=== PATIENT | female | born 1995 | race Caucasian/White ===

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

== ENCOUNTER 2017-05-22 02:18 | Inpatient (IN) | payer MEDICAID, OTHER ==
[2017-05-22] VITALS (51 sets, daily range): BP systolic 93–139; BP diastolic 49–91; PULSE 73–116; RESP 16–18; TEMP 97.9–98.8
[~2017-05-22] VITALS: Ht 160 cm; Wt 94.0 kg
[~2017-05-22 02:18] MED LIST changes: -BACT800T5 PO; +PREN1CHW7 PO; -PYRI200T4 PO
[2017-05-22] MEDS ORDERED: LACTATED RINGER'S 1000 ML INJ 1,000 ML IV PRN (03:03)
--- NOTE | 2017-05-22 03:03 | PD ---
HPI Chief Complaint fluid per vagina Date Seen: May 22, 2017 Time Seen: 03:00 Travel History International Travel<30 Days: No Contact w/Intl Traveler<30Days: No Known Affected Area: No History of Present Illness HPI 22-year-old who is at 36 weeks 6 days comes in complaining of fluid per vagina that began about 01 100 today. Patient denies painful contractions but notices a little bit of cramping. No antepartum complications at this time but has not gotten the results of her group B strep. Weeks Gestation: 36 Para: 0 : 1 History Past Medical History Medical History: Denies Significant Hx Past Surgical History Narrative Surgical Tonsillectomy Family History Family History: Negative Social History Alcohol Use: No Tobacco Use: No Substance Abuse: No Allergies-Medications (Allergen,Severity, Reaction): Coded Allergies: No Known Allergies (Verified Adverse Reaction, Unknown, 05/02/17) Home Meds Active Scripts Vit W/ Ferric Phospha (Vitafol Gummies 3.33-0.333-34.8 mg) 1 Chw Chw, 3 TAB PO DAILY, #90 BOTTLE 10 Refills Prov:Karishma Looney 03/26/17 Review of Systems Except as stated in HPI: all other systems reviewed are Neg Physical Exam Narrative GENERAL: Well-nourished, well-developed patient. SKIN: Warm and dry. HEAD: Normocephalic and atraumatic. EYES: No scleral icterus. No injection or drainage. ENT: No nasal drainage noted. Mucous membranes pink. Airway patent. NECK: Supple, trachea midline. No JVD. CARDIOVASCULAR: Regular rate and rhythm without murmurs, gallops, or rubs. RESPIRATORY: Breath sounds equal bilaterally. No accessory muscle use. ABDOMEN/GI: Abdomen soft, non-tender, bowel sounds present, no rebound, no guarding Gravid to [37-] weeks size Fundal Height: [-] GENITOURINARY: External Genitalia: intact and normal in appearance BUS glands: [-] Normal Cervix: [-] Posterior Dilatation: [-] Closed Effacement: [-] 50 Station: [-] -3 Presentation: [-] Vertex Membranes: [intact or ruptured] ruptured with a positive amnisure Uterine Contractions: [-] Occasional contractions, mild FHT's: Category: [-] 1 Baseline: [-] 140 Reactive: [-] Moderate Variability: [-] Moderate Decels: [-] Absent EXTREMITIES: No cyanosis or edema. BACK: Nontender without obvious deformity. No CVA tenderness. NEUROLOGICAL: Awake and alert. Motor and sensory grossly within normal limits. Five out of 5 muscle strength in all muscle groups. Normal speech. Data Data Vital Signs Reviewed: Yes [facility] Medical Record Reviewed: Yes Plan 22-year-old at 36 weeks 6 days with premature rupture membranes. Antibiotic prophylaxis she has not completed her 36 week we do not have a group B strep result Cervical ripening with Cytotec followed by Pitocin augmentation Diagnosis Diagnosis: Primary Impression: 36 weeks gestation of Additional Impressions: Rupture of membranes with clear amniotic fluid Premature rupture of membranes Medina Sutton MD May 22, 2017 03:03
[2017-05-22] MEDS ORDERED: PENICILLIN G POTASSIUM INJ 5,000,000 UNITS in SODIUM CHLORIDE 0.9% INJ 100 ML IV ONE (03:15)
[2017-05-22] MEDS ORDERED: OXYTOCIN 30 UNITS-500ML PREMIX 500 ML IV ONE (03:15)
[2017-05-22] MEDS ORDERED: ONDANSETRON HCL 4 MG/2 ML VIAL IV PUSH PRN (03:15)
[2017-05-22] MEDS ORDERED: SODIUM CHLORIDE 0.9% FLUSH 10 ML FLUSH IV FLUSH PRN (03:15)
[2017-05-22] MEDS ORDERED: MINERAL OIL 10 ML VIAL TOPICAL PRN (03:15)
[2017-05-22] MEDS ORDERED: LIDOCAINE HCL 1% 50 ML VIAL I-DERMAL PRN (03:15)
[2017-05-22] MEDS ORDERED: LIDOCAINE HCL 1% 50 ML VIAL INFIL PRN (03:15)
[2017-05-22] MEDS ORDERED: SODIUM CHLORID 0.9% 500 ML INJ 500 ML IV PRN (03:15)
[2017-05-22] MEDS ORDERED: CITRIC ACID-SODIUM CITRATE LIQ 30 ML UDC PO SCH (03:15)
[2017-05-22] MEDS ORDERED: SODIUM CHLOR 0.9% 1000 ML INJ 1,000 ML IV PRN (03:23)
[2017-05-22 03:58] LABS: BASOPHIL % 0.4 % (0.0-2.0); EOSINOPHIL # 0.1 TH/MM3 (0-0.4); EOSINOPHIL % 0.9 % (0.0-4.0); HEMATOCRIT 30.2 % (35.0-46.0); HEMOGLOBIN 10.6 GM/DL (11.6-15.3); LYMPH % 26.2 % (9.0-44.0); LYMPHOCYTE # 2.8 TH/MM3 (1.0-4.8); MEAN CELL VOLUME 83.2 FL (80.0-100.0); MEAN CORPUSCULAR HEMOGLOBIN 29.1 PG (27.0-34.0); MEAN CORPUSCULAR HGB CONC 34.9 % (32.0-36.0); MEAN PLATELET VOLUME 6.9 FL (7.0-11.0); MONO % 8.6 % (0.0-8.0); MONOCYTE # 0.9 TH/MM3 (0-0.9); NEUT % 63.9 % (16.0-70.0); PLATELET COUNT 340 TH/MM3 (150-450); RED BLOOD COUNT 3.63 MIL/MM3 (4.00-5.30); RED CELL DISTRIBUTION WIDTH 13.4 % (11.6-17.2); WHITE BLOOD COUNT 10.9 TH/MM3 (4.0-11.0)
[2017-05-22] MEDS: MISOPROSTOL 100 MCG TAB PO SCH ×2 (04:00→08:39)
[2017-05-22] MEDS: LACTATED RINGER'S 1000 ML INJ 1,000 ML IV SCH ×2 (04:27→11:03)
[2017-05-22] MEDS ORDERED: PENICILLIN G POTASSIUM INJ 2,500,000 UNITS in SODIUM CHLORIDE 0.9% INJ 100 ML IV SCH (07:15)
[2017-05-22] MEDS: SODIUM CHLORIDE 0.9% FLUSH 10 ML FLUSH IV FLUSH SCH ×2 (09:00→21:00)
[2017-05-22] MEDS: MISOPROSTOL 25 MCG TAB VAGINAL SCH ×2 (12:22→16:00)
[2017-05-22] MEDS: PENICILLIN G POTASSIUM INJ 2,500,000 UNITS in SODIUM CHLORIDE 0.9% INJ 100 ML IV SCH ×3 (12:38→20:00)
[2017-05-22] MEDS ORDERED: OXYTOCIN 30 UNITS-500ML PREMIX 500 ML IV PRN (16:45)
[2017-05-22] MEDS ORDERED: ePHEDrine/NS 25 MG/5 ML SYRINGE ONE (18:45)
[2017-05-22] MEDS ORDERED: ePHEDrine/NS 25 MG/5 ML SYRINGE IV PUSH PRN (20:30)
[2017-05-22] MEDS ORDERED: fentaNYL 2MCG-BUPIV 0.125% 100 ML EPIDURAL SCH (21:00)
[2017-05-22] MEDS ORDERED: DO NOT ADMINISTER ANTICOAGULANTS PRN (21:00)
[2017-05-22] MEDS ORDERED: NO SYSTEM NARCOTICS PRN (21:00)
[2017-05-23] VITALS (25 sets, daily range): BP systolic 99–146; BP diastolic 41–83; PULSE 75–109; RESP 14–25; TEMP 97.8–99.5; O2SAT 97–100
[2017-05-23] MEDS ORDERED: MORPHINE SULFATE PF 5 MG/10 ML VIAL ONE (04:03)
[2017-05-23] MEDS ORDERED: OXYTOCIN 30 UNITS-500ML PREMIX 500 ML IV ONE (05:15)
[2017-05-23] MEDS ORDERED: ZOLPIDEM TARTRATE 5 MG TAB PO PRN (05:15)
[2017-05-23] MEDS ORDERED: CEFAZOLIN INJ 2,000 MG in SODIUM CHLORIDE 0.9% INJ 100 ML IV SCH (05:15)
[2017-05-23] MEDS ORDERED: ACETAMINOPHEN 325 MG TAB PO PRN (05:15)
[2017-05-23] MEDS ORDERED: DOCUSATE SODIUM 50 MG/SENNA 8.6 MG TAB PO PRN (05:15)
[2017-05-23] MEDS ORDERED: SIMETHICONE 80 MG CHEWABLE TAB PO PRN (05:15)
[2017-05-23] MEDS ORDERED: SODIUM CHLORIDE 0.9% FLUSH 10 ML FLUSH IV FLUSH PRN (05:15)
[2017-05-23] MEDS ORDERED: oxyCODONE/ACETAMINOPHEN 5 MG/325 MG TAB PO PRN (05:15)
[2017-05-23] MEDS ORDERED: KETOROLAC TROMETHAMINE 60 MG/2 ML (IM) VIAL IM PRN (05:15)
[2017-05-23] MEDS ORDERED: ONDANSETRON HCL 4 MG/2 ML VIAL IV PUSH PRN (05:15)
[2017-05-23] MEDS ORDERED: ceFAZolin 2 GM PREMIX 50 ML IV SCH (06:00)
[2017-05-23] MEDS ORDERED: KETOROLAC TROMETHAMINE 60 MG/2 ML (IM) VIAL IM ONE (07:58)
[2017-05-23] MEDS ORDERED: ACETAMINOPHEN 1000 MG/100 ML 100 ML IV ONE ×3 (07:58→13:00)
[2017-05-23] MEDS ORDERED: EPIDURAL-NO SYSTEMIC NARCOTICS PRN (08:30)
[2017-05-23] MEDS ORDERED: EPIDURAL-NALOXONE HCL 0.4 MG/ML AMP IV PUSH PRN (08:30)
[2017-05-23] MEDS ORDERED: EPIDURAL-DIPHENHYDRAMINE HCL 50 MG/ML VIAL IV PUSH PRN (08:30)
[2017-05-23] MEDS ORDERED: EPIDURAL-DIPHENHYDRAMINE HCL 50 MG CAP PO PRN (08:30)
[2017-05-23] MEDS ORDERED: EPIDURAL-DO NOT ADMINISTER ANTICOAGULANTS PRN (08:30)
[2017-05-23] MEDS ORDERED: SODIUM CHLORIDE 0.9% FLUSH 10 ML FLUSH IV FLUSH SCH (09:00)
[2017-05-23] MEDS ORDERED: INFLUENZA VIRUS VACCINE (QUADRIVALENT) 0.5 ML SYR IM ONE (10:00)
[2017-05-23] MEDS ORDERED: LACTATED RINGER'S 1000 ML INJ 1,000 ML IV SCH (10:15)
--- NOTE | 2017-05-23 11:18 | MP ---
cc: VERN CENTENO MD DATE OF SURGERY 05/23/2017 PREOPERATIVE DIAGNOSIS 37-week intrauterine with premature rupture of membranes, failure to progress, failed labor induction. POSTOPERATIVE DIAGNOSIS 37-week intrauterine with premature rupture of membranes, failure to progress, failed labor induction. PROCEDURE PERFORMED Primary low transverse section. SURGEON MD Bin ANESTHESIA Epidural PREOPERATIVE NOTE The patient is a 22-year-old white female, , at 37 weeks presented with premature rupture of the membranes but was not in labor. She was admitted, given cervical ripening and labor induction. She achieved cervical dilation to 5 cm and stayed at that dilation for 5 hours with no further progress in spite of augmentation and adequate contractions. It was felt that she had labor dystocia and would need section. PROCEDURE The patient was taken to the operating room and placed in supine position on the operating room table. After adequate epidural anesthesia was administered, she was prepped and draped for abdominal surgery and a Pfannenstiel incision was made in the lower abdomen, carried through the fascia sharply. The Fascia was dissected laterally and then off the rectus muscle. The peritoneal cavity was entered sharply in the midline. Incision was extended superiorly and inferiorly and the bladder placed under the bladder blade. The visceral peritoneum was reflected off the lower uterine segment and placed on the bladder blade. A female infant was then delivered through a transverse hysterotomy, delivery time 04:37 a.m., Apgars 9 and 9, baby's weight 3010 grams. Delayed cord clamping done, cord blood obtained. Placenta manually extracted without difficulty. The uterus was exteriorized and then hysterotomy closed in running layer of 0 chromic followed by imbricating suture of same. Hemostasis was achieved. The bladder was reapproximated with a running stitch of 2-0 Vicryl. The uterus was elevated and blood suctioned from the cul-de-sac and gutters and the uterus replaced in the peritoneal cavity. The parietal peritoneum was closed with a running layer of 2-0 Vicryl. The rectus muscle was reapproximated together with stick ties of chromic and Vicryl. The fascia was closed in a running layer of 0 Vicryl and the skin closed with 3-0 Monocryl subcuticular stitch. Steri-Strips and pressure dressing applied. Estimated blood loss was 500 cc. There were no complications. Sponge and needle count correct x 2. The patient went to Recovery. Baby and mother are doing well. MD ELBERT Rivero/VIKA /5:19 AM /10:53 AM
[2017-05-23] MEDS ORDERED: ONDANSETRON HCL 4 MG/2 ML VIAL IV ONE (12:00)
[2017-05-23] MEDS ORDERED: LIDOCAINE 2%/EPINEPHrine PF 1:200,000 20ML SDV OTHER ONE (12:00)
[2017-05-23] MEDS ORDERED: OXYTOCIN 10 UNIT/ML AMP IV ONE (12:00)
[2017-05-23] MEDS ORDERED: LACTATED RINGER'S 1000 ML INJ 1,000 ML IV ONE (12:00)
[2017-05-23] MEDS ORDERED: ceFAZolin INJ 1,000 MG VIAL IV ONE (12:00)
[2017-05-23] MEDS ORDERED: SODIUM CHLORIDE 0.9% 20 ML VIAL IV ONE (12:00)
[2017-05-23] MEDS ORDERED: DEXAMETHASONE SOD PHOS 4 MG/ML VIAL IV ONE (12:00)
[2017-05-23] MEDS: ceFAZolin 2 GM PREMIX 50 ML IV SCH ×2 (12:55→20:45)
[2017-05-23] MEDS ORDERED: OXYTOCIN 30 UNITS-500ML PREMIX 500 ML IV PRN (15:15)
[2017-05-23] MEDS: IBUPROFEN 600 MG TAB PO PRN (18:53)
[2017-05-23] MEDS: oxyCODONE/ACETAMINOPHEN 5 MG/325 MG TAB PO PRN (18:54)
[2017-05-24 01:00] VITALS: BP 116/74; PULSE 87; RESP 16; TEMP 97.6
[2017-05-24] MEDS: IBUPROFEN 600 MG TAB PO PRN ×3 (05:34→20:28)
[2017-05-24] MEDS: oxyCODONE/ACETAMINOPHEN 5 MG/325 MG TAB PO PRN ×4 (05:34→20:28)
[2017-05-24 06:10] LABS: AUTOMATED NEUTROPHIL # 7.4 TH/MM3 (1.8-7.7); BASOPHIL % 0.3 % (0.0-2.0); EOSINOPHIL # 0.1 TH/MM3 (0-0.4); EOSINOPHIL % 0.8 % (0.0-4.0); HEMATOCRIT 24.4 % (35.0-46.0); HEMOGLOBIN 8.7 GM/DL (11.6-15.3); LYMPH % 23.2 % (9.0-44.0); LYMPHOCYTE # 2.6 TH/MM3 (1.0-4.8); MEAN CELL VOLUME 84.3 FL (80.0-100.0); MEAN CORPUSCULAR HGB CONC 35.6 % (32.0-36.0); MEAN PLATELET VOLUME 6.9 FL (7.0-11.0); MONO % 9.8 % (0.0-8.0); MONOCYTE # 1.1 TH/MM3 (0-0.9); NEUT % 65.9 % (16.0-70.0); PLATELET COUNT 236 TH/MM3 (150-450); RED CELL DISTRIBUTION WIDTH 13.5 % (11.6-17.2); WHITE BLOOD COUNT 11.2 TH/MM3 (4.0-11.0)
[2017-05-24 08:10] VITALS: BP 116/64; PULSE 88; RESP 18; TEMP 98; O2SAT 98
[2017-05-24 08:15] VITALS: BP 116/64; PULSE 18; PULSE 88; RESP 18; TEMP 98
--- NOTE | 2017-05-24 08:59 | HHI.OB ---
Subjective Post Operative Day: 1 Remarks Postoperative day number 1. AFVSS overnight. Pain not well-controlled. Incision not draining. Decreased lochia. Denies dysuria. No breast tenderness. She is feeding the baby via breast. Appetite good. No nausea or vomiting. + flatus. no bowel movement. Ambulating well. Denies calf pain, shortness of breath, or cough. Otherwise, she is doing well this morning and has no other complaints. Objective Vitals/I&O Vital Signs Date Time Temp Pulse Resp B/P (MAP) Pulse Ox O2 Delivery O2 Flow Rate FiO2 05/24/17 08:10 98.0 88 18 116/64 (81) 98 05/24/17 01:00 97.6 05/24/17 01:00 87 16 116/74 (88) 05/23/17 20:16 108/64 (79) 05/23/17 20:16 97.8 90 18 05/23/17 13:00 98.2 16 05/23/17 13:00 75 108/60 (76) 05/23/17 10:00 98.5 80 16 115/68 (84) Result Diagram: 05/24/17 0529 Objective Remarks GENERAL: Well-nourished, well-developed patient. CARDIOVASCULAR: Regular rate and rhythm without murmurs, gallops, or rubs. RESPIRATORY: Breath sounds equal bilaterally. No accessory muscle use. ABDOMEN/GI: Abdomen soft, non-tender, bowel sounds present. Incision: Clean, dry and intact. Fundus: Firm, non-tender at umbilicus. GENITOURINARY: Light to moderate bleeding. EXTREMITIES: No cyanosis or edema, non-tender, without signs of DVT. Medications and IVs Current Medications Medications (Trade) Dose Ordered Sig/Maki Route Start Time Stop Time Status Last Admin Lactated Ringer's 1,000 ml @ 125 mls/hr Q8H IV 05/22/17 03:03 05/22/17 11:03 Lactated Ringer's 1,000 ml @ 3,000 mls/hr Q20M PRN IV 05/22/17 03:03 Sodium Chloride 500 ml @ 1,000 mls/hr ONCE PRN IV 05/22/17 03:15 Sodium Chloride 1,000 ml @ 100 mls/hr Q10H PRN IV 05/22/17 03:23 (Xylocaine 1% Inj (50 ml)) 0.1 ml UNSCH X1 PRN I-DERMAL 05/22/17 03:15 05/25/17 03:14 (Bicitra Liq) 30 ml GYM TEACHER PO 05/22/17 03:15 05/26/17 03:14 (fentaNYL INJ) 50 mcg Q1H PRN IV PUSH 05/22/17 03:15 (fentaNYL INJ) 100 mcg Q1H PRN IV PUSH 05/22/17 03:15 05/22/17 17:32 (Muri-Lube Oil) 10 ml UNSCH PRN TOPICAL 05/22/17 03:15 (Cytotec) 25 mcg Q4HR VAGINAL 05/22/17 12:00 05/22/17 12:22 Penicillin G Potassium [id number] units/Sodium Chloride 100 ml @ 200 mls/hr Q4H IV 05/22/17 12:00 05/22/17 20:00 Oxytocin 500 ml @ 2 mls/hr TITRATE PRN IV 05/22/17 16:45 05/22/17 17:08 Fentanyl/ Bupivacaine HCl 100 ml @ 0 mls/hr TITRATE EPIDURAL 05/22/17 21:00 Oxytocin 500 ml @ 100 mls/hr UNSCH X1 PRN IV 05/23/17 15:15 05/24/17 15:14 (NS Flush) 2 ml BID IV FLUSH 05/23/17 09:00 (NS Flush) 2 ml UNSCH PRN IV FLUSH 05/23/17 05:15 (Mylicon Chew) 80 mg QID PRN PO 05/23/17 05:15 (Tylenol) 650 mg Q6H PRN PO 05/23/17 05:15 (Motrin) 600 mg Q6H PRN PO 05/23/17 05:15 05/24/17 05:34 (Percocet 5-325 Mg) 1 tab Q4H PRN PO 05/23/17 05:15 05/24/17 05:34 (Percocet 5-325 Mg) 2 tab Q4H PRN PO 05/23/17 05:15 05/24/17 00:03 (Vannessa-Colace) 2 tab Q12H PRN PO 05/23/17 05:15 05/24/17 05:34 (Ambien) 5 mg HS PRN PO 05/23/17 05:15 (M-M-R Ii Inj) 0.5 ml ONCE ONCE SQ 05/24/17 16:00 05/24/17 16:01 (Boostrix Inj) 0.5 ml ONCE ONCE IM 05/24/17 16:00 05/24/17 16:01 05/23/17 18:53 (Zofran Inj) 4 mg Q6H PRN IV PUSH 05/23/17 05:15 Assessment/Plan Problem List: (1) delivery, delivered, current hospitalization ICD Codes: O82 - Encounter for delivery without indication Status: Acute Plan: 22 y/o female who is POD# 1 s/p CXN. -Continue routine care. -Percocet and Motrin PRN pain. -Encouraged OOB. Advised pelvic rest for 6 wks. Will need a f/u appt. in 1 wk for incision check. -Re: ctrl, she would like an IUD, but would like a DepoProvera shot before discharge. -D/c in 1-2 more days. [facility] OB attending Mae Gupta MD R1 May 24, 2017 08:59
[2017-05-24] MEDS ORDERED: MEASLES, MUMPS, RUBELLA VACCINE 0.5 ML VIAL SQ ONE (16:00)
[2017-05-24] MEDS ORDERED: DIPHTH/TETANUS/ACEL PERTUSSIS (BOOSTER) 0.5 ML VIAL/PFS IM ONE (16:00)
[2017-05-24 20:00] VITALS: BP 135/80; PULSE 87; RESP 20; TEMP 99.9
[2017-05-25 08:00] VITALS: BP 127/80; PULSE 87; RESP 18; TEMP 98.1; O2SAT 98
[2017-05-25] MEDS ORDERED: medroxyPROGESTERone ACETATE SUSP 150 MG/ML SYRINGE IM ONE (08:30)
[2017-05-25] MEDS ORDERED: OXYC1TAB63 PO (08:32)
[2017-05-25] MEDS ORDERED: IBUP-232 PO (08:32)
--- NOTE | 2017-05-25 08:33 | HHI.DCPOC ---
Discharge Care Plan Diagnosis: (1) delivery, delivered, current hospitalization Report Symptoms to Your Doctor -Temperature above 100.5 degrees -Redness, of incision or excessive or foul smelling drainage -Unusual pain or calf pain -Increased vaginal bleeding -Painful or difficulty urinating -Feelings of extreme sadness or anxiety after 2 weeks Goals to Promote Your Health * To prevent worsening of your condition and complications * To maintain your health at the optimal level Directions to Meet Your Goals Take your medications as prescribed Follow your dietary instruction Follow activity as directed Ensure plenty of rest for recovery Drink fluids for hydration Keep your appointments as scheduled Take your immunizations and boosters as scheduled If your symptoms worsen call your PCP, if no PCP go to Urgent Care Center or Emergency Room Smoking is Dangerous to Your Health. Avoid second hand smoke Call the 24-hour crisis hotline for domestic abuse at Lani Sanchez MD May 25, 2017 08:33
--- NOTE | 2017-05-25 08:39 | HHI.OB ---
Subjective Post Operative Day: 2 Remarks Postoperative day number 2. AFVSS overnight. Pain not well-controlled. Incision not draining. Decreased lochia. Denies dysuria. No breast tenderness. She is feeding the baby via breast. Appetite good. No nausea or vomiting. + flatus. no bowel movement. Ambulating well. Denies calf pain, shortness of breath, or cough. Otherwise, she is doing well this morning and has no other complaints. Objective Vitals/I&O Vital Signs Date Time Temp Pulse Resp B/P (MAP) Pulse Ox O2 Delivery O2 Flow Rate FiO2 05/24/17 20:00 99.9 87 20 05/24/17 20:00 135/80 (98) Result Diagram: 05/24/17 0529 Objective Remarks GENERAL: Well-nourished, well-developed patient. CARDIOVASCULAR: Regular rate and rhythm without murmurs, gallops, or rubs. RESPIRATORY: Breath sounds equal bilaterally. No accessory muscle use. ABDOMEN/GI: Abdomen soft, non-tender, bowel sounds present. Incision: Clean, dry and intact. Steristrips in place Fundus: Firm, non-tender at umbilicus. GENITOURINARY: Light to moderate bleeding. EXTREMITIES: No cyanosis or edema, non-tender, without signs of DVT. Medications and IVs Current Medications Medications (Trade) Dose Ordered Sig/Maki Route Start Time Stop Time Status Last Admin Lactated Ringer's 1,000 ml @ 125 mls/hr Q8H IV 05/22/17 03:03 05/22/17 11:03 Lactated Ringer's 1,000 ml @ 3,000 mls/hr Q20M PRN IV 05/22/17 03:03 Sodium Chloride 500 ml @ 1,000 mls/hr ONCE PRN IV 05/22/17 03:15 Sodium Chloride 1,000 ml @ 100 mls/hr Q10H PRN IV 05/22/17 03:23 (Bicitra Liq) 30 ml WALL STEAMER PO 05/22/17 03:15 05/26/17 03:14 (fentaNYL INJ) 50 mcg Q1H PRN IV PUSH 05/22/17 03:15 (fentaNYL INJ) 100 mcg Q1H PRN IV PUSH 05/22/17 03:15 05/22/17 17:32 (Muri-Lube Oil) 10 ml UNSCH PRN TOPICAL 05/22/17 03:15 (Cytotec) 25 mcg Q4HR VAGINAL 05/22/17 12:00 05/22/17 12:22 Penicillin G Potassium [id number] units/Sodium Chloride 100 ml @ 200 mls/hr Q4H IV 05/22/17 12:00 05/22/17 20:00 Oxytocin 500 ml @ 2 mls/hr TITRATE PRN IV 05/22/17 16:45 05/22/17 17:08 Fentanyl/ Bupivacaine HCl 100 ml @ 0 mls/hr TITRATE EPIDURAL 05/22/17 21:00 (NS Flush) 2 ml BID IV FLUSH 05/23/17 09:00 (NS Flush) 2 ml UNSCH PRN IV FLUSH 05/23/17 05:15 (Mylicon Chew) 80 mg QID PRN PO 05/23/17 05:15 05/24/17 14:21 (Tylenol) 650 mg Q6H PRN PO 05/23/17 05:15 (Motrin) 600 mg Q6H PRN PO 05/23/17 05:15 05/24/17 20:28 (Percocet 5-325 Mg) 1 tab Q4H PRN PO 05/23/17 05:15 05/24/17 20:28 (Percocet 5-325 Mg) 2 tab Q4H PRN PO 05/23/17 05:15 05/24/17 00:03 (Vannessa-Colace) 2 tab Q12H PRN PO 05/23/17 05:15 05/24/17 05:34 (Ambien) 5 mg HS PRN PO 05/23/17 05:15 (Zofran Inj) 4 mg Q6H PRN IV PUSH 05/23/17 05:15 Assessment/Plan Problem List: (1) delivery, delivered, current hospitalization ICD Codes: O82 - Encounter for delivery without indication Status: Acute Plan: 22 y/o female who is POD# 2 s/p CXN. -Continue routine care. -Percocet and Motrin PRN pain. -Encouraged OOB. Advised pelvic rest for 6 wks. Will need a f/u appt. in 1 wk for incision check. -Re: ctrl, she would like an IUD. DepoProvera shot before discharge (no hx migraine, clot, HTN) -D/c today dw Dr. Bin Sanchez,Lani Munson MD May 25, 2017 08:39
[2017-05-25] MEDS: IBUPROFEN 600 MG TAB PO PRN (11:58)
[2017-05-25] MEDS: oxyCODONE/ACETAMINOPHEN 5 MG/325 MG TAB PO PRN (11:58)
== END 2017-05-25 13:19 | disposition home or self-care (01) | DRG 766 ==
LOC: HOBED 02:18 → H2EA 03:03 → H1EA 05-23 08:24
PROVIDERS: ADMIT Obstetrics & Gynecology Obstetrics; ATTEND Obstetrics & Gynecology Obstetrics
PROC: 3E0P7VZ Introduction of Hormone into Female Reproductive, Via Natural or Artificial Opening (ICD-10-PCS; 2017-05-22)
PROC: 3E033VJ Introduction of Other Hormone into Peripheral Vein, Percutaneous Approach (ICD-10-PCS; 2017-05-22)
PROC: 10D00Z1 Extraction of Products of Conception, Low, Open Approach (ICD-10-PCS; principal; 2017-05-23)
DX: O42.913 Preterm premature rupture of membranes, unspecified as to length of time between rupture and onset of labor, third trimester (principal); O61.0 Failed medical induction of labor; Z37.0 Single live birth; Z23 Encounter for immunization; Z3A.36 36 weeks gestation of pregnancy; O62.2 Other uterine inertia
CPT/HCPCS: 59025; 80307; 84112; 85025; 86900; 86901; 90686; 90715; J0131; J0690; J1050; J1100; J1885; J2274; J2405; J2540; J2590; J3010; J7120; Q2038

== ENCOUNTER 2017-06-18 16:17 | Emergency (ER) | payer MEDICAID ==
[~2017-06-18] VITALS: Ht 160 cm; Wt 86.0 kg
[~2017-06-18 16:17] MED LIST changes: +IBUP-232 PO; +OXYC1TAB63 PO
[2017-06-18 16:24] VITALS: BP 126/76; PULSE 89; RESP 16; TEMP 98.6; O2SAT 98
--- NOTE | 2017-06-18 16:58 | PD ---
HPI Chief Complaint: Abdominal Pain Time Seen by Provider: 16:39 Travel History International Travel<30 days: No Contact w/Intl Traveler<30days: No Traveled to known affect area: No History of Present Illness HPI Patient is a 22-year-old female at 4 weeks of a low transverse. This performed for failure to progress. She also had premature ruptured membranes at 36 weeks and 6 days. She presents emergency department with left flank abdominal pain not associate with any nausea vomiting but has been having some discharge and bleeding still. States that he has been going on for 2 days, gradually worsening, intermittent and not associate with any nausea or vomiting in context as above. She called her [facility] clinic today and the clinic was closed she decided to come here instead. FORMERLY [facility], [facility] Past Medical History Medical History: Denies Significant Hx Diminished Hearing: No Immunizations Current: Yes ?: Not LMP: POST 1 MONTH : 1 Para: 1 Past Surgical History Section: Yes (X 1) Oral Surgery: Yes (WISDOM TEETH) Tonsillectomy: Yes Social History Alcohol Use: No Tobacco Use: No Substance Use: No Allergies-Medications (Allergen,Severity, Reaction): Coded Allergies: No Known Allergies (Verified Adverse Reaction, Unknown, 06/18/17) Reported Meds & Prescriptions Reported Meds & Active Scripts Active No Active Prescriptions or Reported Medications Review of Systems Except as stated in HPI: all other systems reviewed are Neg Physical Exam Narrative GENERAL: Well-developed well-nourished, no obvious distress. SKIN: Focused skin assessment warm/dry. scar clean dry and intact, healing well, no signs of infection. HEAD: Atraumatic. Normocephalic. EYES: Pupils equal and round. No scleral icterus. No injection or drainage. ENT: No nasal bleeding or discharge. Mucous membranes pink and moist. NECK: Trachea midline. No JVD. CARDIOVASCULAR: Regular rate and rhythm. No murmur appreciated. RESPIRATORY: No accessory muscle use. Clear to auscultation. Breath sounds equal bilaterally. GASTROINTESTINAL: Abdomen soft, non-tender, nondistended. Hepatic and splenic margins not palpable. No rebound no percussive tenderness. No CVA tenderness. GENITOURINARY: Exam performed with female nurse code and test clerk present all times, there is scant blood in the vaginal vault, no cervical motion tenderness no bimanual tenderness, there is no vaginal tears, os is closed. MUSCULOSKELETAL: No obvious deformities. No clubbing. No cyanosis. No edema. NEUROLOGICAL: Awake and alert. No obvious cranial nerve deficits. Motor grossly within normal limits. Normal speech. PSYCHIATRIC: Appropriate mood and affect; insight and judgment normal. Data Data Last Documented VS Vital Signs Date Time Temp Pulse Resp B/P (MAP) Pulse Ox O2 Delivery O2 Flow Rate FiO2 06/18/17 18:50 70 16 118/66 (83) 100 06/18/17 17:28 Room Air 06/18/17 16:24 98.6 Orders Orders Urinalysis - C+S If Indicated (06/18/17 16:34) Ed Urine Pregnancytest Poc (06/18/17 16:34) Complete Blood Count With Diff (06/18/17 16:47) Comprehensive Metabolic Panel (06/18/17 16:47) Lipase (06/18/17 16:47) Iv Access Insert/Monitor (06/18/17 16:47) Ecg Monitoring (06/18/17 16:47) Oximetry (06/18/17 16:47) Sodium Chloride 0.9% Flush (Ns Flush) (06/18/17 17:00) Acetaminophen (Tylenol) (06/18/17 17:00) Wet Prep Profile (06/18/17 16:47) Gc And Chlamydia Pcr (06/18/17 16:47) Ed Discharge Order (06/18/17 18:19) Labs Laboratory Tests Test 06/18/17 17:11 06/18/17 18:05 White Blood Count 10.3 TH/MM3 Red Blood Count 4.47 MIL/MM3 Hemoglobin 12.4 GM/DL Hematocrit 36.9 % Mean Corpuscular Volume 82.7 FL Mean Corpuscular Hemoglobin 27.7 PG Mean Corpuscular Hemoglobin Concent 33.5 % Red Cell Distribution Width 12.8 % Platelet Count 355 TH/MM3 Mean Platelet Volume 6.6 FL Neutrophils (%) (Auto) 60.6 % Lymphocytes (%) (Auto) 31.6 % Monocytes (%) (Auto) 6.8 % Eosinophils (%) (Auto) 0.7 % Basophils (%) (Auto) 0.3 % Neutrophils # (Auto) 6.3 TH/MM3 Lymphocytes # (Auto) 3.2 TH/MM3 Monocytes # (Auto) 0.7 TH/MM3 Eosinophils # (Auto) 0.1 TH/MM3 Basophils # (Auto) 0.0 TH/MM3 CBC Comment DIFF FINAL Differential Comment Urine Color YELLOW Urine Turbidity CLEAR Urine pH 5.0 Urine Specific [place] 1.025 Urine Protein NEG mg/dL Urine Glucose (UA) NEG mg/dL Urine Ketones NEG mg/dL Urine Occult Blood TRACE Urine Nitrite NEG Urine Bilirubin NEG Urine Urobilinogen 0.2 MG/DL Urine Leukocyte Esterase NEG Urine RBC 0-3 /hpf Urine WBC 0-2 /hpf Urine Squamous Epithelial Cells 0-5 /hpf Microscopic Urinalysis Comment CULT NOT INDICATED Blood Urea Nitrogen 11 MG/DL Creatinine 0.72 MG/DL Random Glucose 85 MG/DL Total Protein 7.8 GM/DL Albumin 3.4 GM/DL Calcium Level 8.7 MG/DL Alkaline Phosphatase 81 U/L Aspartate Amino Transf (AST/SGOT) 26 U/L Alanine Aminotransferase (ALT/SGPT) 46 U/L Total Bilirubin 0.3 MG/DL Sodium Level 136 MEQ/L Potassium Level 3.5 MEQ/L Chloride Level 105 MEQ/L Carbon Dioxide Level 23.2 MEQ/L Anion Gap 8 MEQ/L Estimat Glomerular Filtration Rate 103 ML/MIN Lipase 95 U/L Clue Cells (Wet Prep) NONE SEEN Vaginal Trichomonas (Wet Prep) NONE SEEN Vaginal Yeast (Wet Prep) NONE SEEN MDM Medical Decision Making Medical Screen Exam Complete: Yes Emergency Medical Condition: Yes Differential Diagnosis Endometritis seems unlikely, urinary tract infection, constipation, acute abdomen highly unlikely. Narrative Course Patient room to the emergency department, she appears quite comfortable, her abdomen is benign. Vaginal exam is also benign. Basic labs sent and white blood cell count normal, initial consideration given for CAT scan of her abdomen for possible endometritis but on vaginal exam the patient has no uterine tenderness and I think this is highly unlikely. I did offer the possibility of kidney stone versus constipation and patient certainly could undergo CAT scan of her abdomen to exclude these diagnoses but after Tylenol she is feeling much better I also offered that she could treat herself symptomatically if symptoms return or worsen or any new symptoms happen that she can return emergency department immediately and this would help to avert any undue radiation exposure. The patient is feeling well enough that she would like to try symptomatic management. I discussed with her following up with her [facility] and certainly if any new or concerning symptoms or her pain should worsen she should return emergency department for consideration of further workup. Diagnosis Primary Impression: Left flank pain Additional Instructions: Follow up with your [facility] tomorrow. If your abdominal pain worsens, you have fevers, or any other concerning symptom return to the ER for repeat evaluation. Take tylenol 500mg every 6 hours as needed for pain. Do not take more than this. If you need this medication for more than 5 days follow up with your physician. No obvious source of your pain has been identified as of yet. Scripts No Active Prescriptions or Reported Meds Disposition: 01 DISCHARGE HOME Condition: Stable Milton Metcalf MD Jun 18, 2017 16:57
[2017-06-18] MEDS ORDERED: SODIUM CHLORIDE 0.9% FLUSH 10 ML FLUSH IV FLUSH PRN (17:00)
[2017-06-18] MEDS ORDERED: ACETAMINOPHEN 325 MG TAB PO ONE (17:00)
[2017-06-18 17:19] LABS: AUTOMATED NEUTROPHIL # 6.3 TH/MM3 (1.8-7.7); BASOPHIL % 0.3 % (0.0-2.0); EOSINOPHIL # 0.1 TH/MM3 (0-0.4); EOSINOPHIL % 0.7 % (0.0-4.0); HEMATOCRIT 36.9 % (35.0-46.0); HEMOGLOBIN 12.4 GM/DL (11.6-15.3); LYMPH % 31.6 % (9.0-44.0); LYMPHOCYTE # 3.2 TH/MM3 (1.0-4.8); MEAN CELL VOLUME 82.7 FL (80.0-100.0); MEAN CORPUSCULAR HEMOGLOBIN 27.7 PG (27.0-34.0); MEAN CORPUSCULAR HGB CONC 33.5 % (32.0-36.0); MEAN PLATELET VOLUME 6.6 FL (7.0-11.0); MONO % 6.8 % (0.0-8.0); MONOCYTE # 0.7 TH/MM3 (0-0.9); NEUT % 60.6 % (16.0-70.0); PLATELET COUNT 355 TH/MM3 (150-450); RED BLOOD COUNT 4.47 MIL/MM3 (4.00-5.30); RED CELL DISTRIBUTION WIDTH 12.8 % (11.6-17.2); WHITE BLOOD COUNT 10.3 TH/MM3 (4.0-11.0)
[2017-06-18 17:20] LABS: BILIRUBIN, URINE NEG (NEG); BLOOD, URINE TRACE (NEG); GLUCOSE,URINE NEG (NEG); KETONE, URINE NEG (NEG); NITRITE,URINE NEG (NEG); URINE COLOR YELLOW (YELLW/STRAW); URINE LEUKOCYTE ESTERASE NEG (NEG)
[2017-06-18 17:23] LABS: CHLORIDE 105 MEQ/L (98-107); SODIUM (NA) 136 MEQ/L (136-145)
[2017-06-18 17:25] LABS: RBC, URINE 0-3 /hpf (0-3); SQUAMOUS EPITHELIAL CELL URINE 0-5 /hpf (0-5); WBC, URINE 0-2 /hpf (0-5)
[2017-06-18 17:27] LABS: ALBUMIN 3.4 GM/DL (3.4-5.0); BICARBONATE 23.2 MEQ/L (21.0-32.0); CALCIUM 8.7 MG/DL (8.5-10.1)
[2017-06-18 17:28] VITALS: RESP 16; O2SAT 99
[2017-06-18 17:28] LABS: BLOOD UREA NITROGEN 11 MG/DL (7-18); GLUCOSE,RANDOM 85 MG/DL (74-106)
[2017-06-18 17:30] LABS: ALT (GPT) 46 U/L (9-42); AST (GOT) 26 U/L (16-38)
[2017-06-18 17:31] VITALS: BP 121/73
[2017-06-18 17:31] LABS: CREATININE 0.72 MG/DL (0.50-1.00); GLOMERULAR FILTRATION RATE 103 ML/MIN (>89)
[2017-06-18 17:32] LABS: TOTAL BILIRUBIN ADULT 0.3 MG/DL (0.2-1.0); TOTAL PROTEIN 7.8 GM/DL (6.4-8.2)
[2017-06-18 17:33] LABS: ALKALINE PHOSPHATASE 81 U/L (45-117)
[2017-06-18 18:39] VITALS: RESP 16
[2017-06-18 18:50] VITALS: BP 118/66
== END 2017-06-18 18:52 | disposition home or self-care (01) ==
LOC: PHED 16:17
DX: R10.9 Unspecified abdominal pain (principal)
CPT/HCPCS: 80053; 81001; 83690; 84703; 85025; 87210; 87491; 87591; 99284

== ENCOUNTER 2017-06-30 15:34 | Emergency (ER) | payer MEDICAID ==
[~2017-06-30] VITALS: Ht 160 cm; Wt 86.0 kg
[2017-06-30 15:38] VITALS: BP 122/58; PULSE 77; RESP 16; TEMP 98.3; O2SAT 98
[2017-06-30 15:46] VITALS: BP 122/58; PULSE 77; RESP 16; TEMP 98.3; O2SAT 98
[2017-06-30] MEDS ORDERED: ACETAMINOPHEN 325 MG TAB PO ONE (17:15)
[2017-06-30] MEDS ORDERED: HYDR2.5%T RECTAL (17:16)
--- NOTE | 2017-06-30 17:17 | PD ---
HPI Chief Complaint: GI Complaint Time Seen by Provider: 16:49 Travel History International Travel<30 days: No Contact w/Intl Traveler<30days: No Traveled to known affect area: No History of Present Illness HPI 22yo F with PMH of external hemorrhoid here because she wants me to check to make sure her hemorrhoid is ok. Said she had the hemorrhoid for 1 year but it got worst after she gave 5 weeks ago. Denies any fever, dizziness, chest pain, sob, n/v, abdominal pain, focal weakness or numbness. PFSH Past Medical History Diminished Hearing: No Immunizations Current: Yes ?: Not : 1 Para: 1 Past Surgical History Section: Yes (X 1) Oral Surgery: Yes (WISDOM TEETH) Tonsillectomy: Yes Social History Alcohol Use: No Tobacco Use: No Substance Use: No Allergies-Medications (Allergen,Severity, Reaction): Coded Allergies: No Known Allergies (Verified Adverse Reaction, Unknown, 06/30/17) Reported Meds & Prescriptions Reported Meds & Active Scripts Active No Active Prescriptions or Reported Medications Review of Systems Except as stated in HPI: all other systems reviewed are Neg Physical Exam Narrative GENERAL: 22yo F not in distress. SKIN: Focused skin assessment warm/dry. HEAD: Atraumatic. Normocephalic. EYES: Pupils equal and round. No scleral icterus. No injection or drainage. ENT: No nasal bleeding or discharge. Mucous membranes pink and moist. NECK: Trachea midline. No JVD. CARDIOVASCULAR: Regular rate and rhythm. No murmur appreciated. RESPIRATORY: No accessory muscle use. Clear to auscultation. Breath sounds equal bilaterally. GASTROINTESTINAL: Abdomen soft, non-tender, nondistended. No rebound tenderness or guarding. RECTAL: +External hemorrhoid that is pink and soft. Tender to touch. No bleeding. MUSCULOSKELETAL: No obvious deformities. No clubbing. No cyanosis. No edema. NEUROLOGICAL: Awake and alert. No obvious cranial nerve deficits. Motor grossly within normal limits. Normal speech. PSYCHIATRIC: Appropriate mood and affect; insight and judgment normal. Data Data Last Documented VS Vital Signs Date Time Temp Pulse Resp B/P (MAP) Pulse Ox O2 Delivery O2 Flow Rate FiO2 06/30/17 15:46 98.3 77 16 122/58 (79) 98 06/30/17 15:38 Room Air Orders Orders Acetaminophen (Tylenol) (06/30/17 17:15) MDM Medical Decision Making Medical Screen Exam Complete: Yes Emergency Medical Condition: Yes Differential Diagnosis External hemorrhoid Narrative Course 22yo F with external hemorrhoid for 1 year but seemed worst after giving 5 weeks ago. Pt is well appearing and has no abdominal pain. External hemorrhoid is soft and pink. Will refer to colorectal surgery if pt wants to have it remove. Return precautions given. Diagnosis Primary Impression: External hemorrhoid Referrals: Susan Sanchez MD as needed External hemorrhoid Patient Instructions: General Instructions Departure Forms: Tests/Procedures Additional Instructions: Please follow up with colorectal surgery for possible hemorrhoidectomy. Return to the ED if symptoms worsen. Med/Other Pt SpecificInfo: Prescription(s) given Scripts Hydrocortisone Rectal (Anusol-Hc Rectal) 2.5% Cream 1 APPLIC RECTAL BID Y for ITCHING/INFLAMMATION for 14 Days, #30 GM 0 Refills Prov: Fariba Puri DO 06/30/17 Disposition: 01 DISCHARGE HOME Condition: Stable Fariba Puri DO Jun 30, 2017 17:17
== END 2017-06-30 17:27 | disposition home or self-care (01) ==
LOC: PHED 15:34
DX: K64.4 Residual hemorrhoidal skin tags (principal)
CPT/HCPCS: 99284